=== PATIENT | male | born 1985 | race American Indian/Alaskan Native ===

== ENCOUNTER 2020-03-12 18:50 | Emergency (ER) | payer SELFPAY ==
--- NOTE | 2020-03-12 19:43 | Emergency Department Report ---
Chief Complaint: Urogenital-Male Stated Complaint: DISCHARGE Time Seen by Provider: 03/12/20 19:40 - HPI History of Present Illness: Patient is a 34-year-old male who presents emergency room complaints of intermittent dysuria that began a month ago. He states he also has intermittent clear penile discharge. He denies any nausea, vomiting, diarrhea, fever, abdominal pain, pain or swelling in the testicles, hematuria, urinary retention. He states he was sexually active without protection. He denies any past medical history. No allergies to medications. He denies any STD history. Vitals are stable On exam: Non toxic appearing, no acute distress atraumatic, normocephalic normal appearance of the eyes,EOMI, no periorbital edema or ecchymosis moist mucus membranes no respiratory distress, no accessory muscle use A&O x4, normal gait Patient is presenting to the emergency department with STD-like symptoms that have been ongoing for a month He denies any nausea, vomiting, diarrhea, fever, abdominal pain, pain or swelling in the testicles, hematuria, urinary retention. Patient will be referred to the health department or clinic for full STD panel advised pt Please follow-up with the health department or clinic for full STD panel. Please have any partner tested and treated as well. Avoid sexual intercourse. Return to emergency room for any new or worsening symptoms. Discuss strict return precautions with patient Patient referred to the appropriate resources Medical screening examination performed and there is no threat to life or limb at this time - Exam Vital Signs: Vital Signs 03/12/20 19:21 Temperature 98.3 F Pulse Rate 78 Respiratory 16 Rate Blood Pressure 135/72 O2 Sat by Pulse 99 Oximetry MSE screening note: Focused history and physical exam performed. Due to findings the following was ordered: ED Disposition for MSE Clinical Impression: Concern about STD in male without diagnosis Disposition: Z-07 MED SCREENING EXAM-LEFT Is pt being admited?: No Does the pt Need Aspirin: No Condition: Stable Instructions: Sexually Transmitted Diseases (ED), Safe Sex (ED) Additional Instructions: Please follow-up with the health department or clinic for full STD panel. Please have any partner tested and treated as well. Avoid sexual intercourse. Return to emergency room for any new or worsening symptoms. Vpon Address: [address] [place] [id number] Referrals: [facility] [Outside] - 2-3 Days Time of Disposition: 19:42 Print Language: FILIPINO
[2020-03-12 19:48] VITALS: BP 135/72
== END 2020-03-12 20:12 | disposition left against medical advice (07) ==
LOC: ED 18:50
DX: R30.0 Dysuria (principal); R36.9 Urethral discharge, unspecified; Z20.2 Contact with and (suspected) exposure to infections with a predominantly sexual mode of transmission; Z53.21 Procedure and treatment not carried out due to patient leaving prior to being seen by health care provider